=== PATIENT | male | born 1955 | race Caucasian/White ===

== ENCOUNTER 2018-10-27 04:55 | Emergency (ER) | payer SELFPAY ==
[~2018-10-27] VITALS: Ht 165.1 cm; Wt 75.0 kg
[~2018-10-27 04:55] MED LIST: ANTIVERT 25MG25 MG PO; BRILINTA90 MG PO; COREG 25MG25 MG/TAB PO; COREG 6.256.25 MG/TA PO; COZAAR100 MG PO; FLEXERIL 1010 MG/TAB PO; FLOMAX 0.40.4 MG/CAP PO; LEVITRA20 MG PO; MOTRIN 600600 MG/TAB PO; NEURONTIN600 MG/TAB PO; NORCO 325 MG-51 TAB PO; PRAVACHOL 20MG20 MG PO; ULTRAM 50MG TAB50 MG PO; ZETIA 10MG TAB10 MG PO
[2018-10-27 04:59] VITALS: TEMP 98.6
[2018-10-27] MEDS ORDERED: ULTRAM ER100 MG PO (05:29)
[2018-10-27] MEDS ORDERED: NORCO 325 MG-51 TAB PO (05:29)
[2018-10-27] MEDS ORDERED: LIPITOR 10MG10 MG PO (05:29)
[2018-10-27] MEDS ORDERED: ASPIRIN 81M81 MG/TA2 PO (05:30)
[2018-10-27 05:43] LABS: BASO # 0.1 (0.0-0.2); BASO % 0.8 % (0.0-2.0); EOS # 0.4 (0.0-0.7); EOS % 4.6 % (0-4.0); GRAN % 38.2 % (42.2-75.2); HEMATOCRIT 47.2 % (42.0-52.0); HEMOGLOBIN 16.1 g/dl (13.5-18.0); LYMPH # 3.4 (1.2-3.4); LYMPH % 43.3 % (20.0-51.0); MEAN CELL VOLUME 92 fl (80.0-100.0); MEAN CORPUSCULAR HEMOGLOBIN 31 pg (27.0-31.0); MEAN CORPUSCULAR HGB CONC 34 g/dl (33.0-37.0); MEAN PLATELET VOLUME 9.9 fl (7.4-10.4); MONO % 12.7 % (1.7-9.3); PLATELET COUNT 165 K/mm3 (130-400); RED BLOOD COUNT 5.15 M/mm3 (4.20-5.60)
[2018-10-27 05:50] LABS: ALANINE AMINOTRANSFERASE 58 U/L (21-72); ALBUMIN 4.4 gm/dL (3.5-5.0); ALKALINE PHOSPHATASE 66 U/L (50-136); ANION GAP 10 mmol/L (7-16); AST,SGOT 56 U/L (15-37); BILIRUBIN,TOTAL 0.6 mg/dL (0.0-1.0); BLOOD UREA NITROGEN 20 mg/dL (9-20); CALCIUM 9.5 mg/dL (8.4-10.2); CARBON DIOXIDE 25 mmol/L (22-30); CHLORIDE 104 mmol/L (98-107); CREATININE, serum 1.22 (0.66-1.25); GLUCOSE 179 mg/dL (74-106); SODIUM 139 mmol/L (137-145); TOTAL PROTEIN 8.2 gm/dL (6.4-8.2)
[2018-10-27 06:02] LABS: TROPONIN-I < 0.012 ng/mL (0.000-0.035)
[2018-10-27 06:14] LABS: INR 0.9 (0.8-3.0); PROTHROMBIN TIME 10.4 SECONDS (9.7-12.8)
[2018-10-27 06:17] LABS: PARTIAL THROMBOPLASTIN TIME 32.3 SECONDS (26.0-37.0)
[2018-10-27] MEDS ORDERED: LOPRESSOR 225 MG/TAB PO (09:03)
[2018-10-27 09:17] VITALS: BP 158/80; PULSE 82
== END 2018-10-27 09:18 | disposition home or self-care (01) ==
LOC: COL.ER 04:55
PROVIDERS: Emergency Medicine
DX: I47.1 Supraventricular tachycardia (principal); I25.10 Atherosclerotic heart disease of native coronary artery without angina pectoris
CPT/HCPCS: J0153

== ENCOUNTER → 2022-02-10 | Outpatient (CLI) | payer MEDICARE, BC ==
[~2022-02-10] MED LIST changes: +ASPIRIN 81M81 MG/TA2 PO; +COZAAR 25MG25 MG/TAB; +LIPITOR 10MG10 MG PO; +LIPITOR 40MG TA40 MG PO; +LOPRESSOR 225 MG/TAB PO; +PLAVIX 75MG TAB75 MG; +ULTRAM ER100 MG PO
== END ==
LOC: COL.RAD 08:54
DX: M51.26 Other intervertebral disc displacement, lumbar region (principal); M48.061 Spinal stenosis, lumbar region without neurogenic claudication; Z98.1 Arthrodesis status
CPT/HCPCS: A9575